=== PATIENT | female | born 1975 | race Caucasian/White ===

== ENCOUNTER 2020-01-21 06:42 | Outpatient (NON) | payer OTHER, SELFPAY ==
[2020-01-24 01:47] LABS: SARS-CoV-2 RNA PCR Negative
== END 2020-01-21 06:43 ==
PROVIDERS: PCP Family Medicine
DX: M51.16 Intervertebral disc disorders with radiculopathy, lumbar region (principal); R68.89 Other general symptoms and signs; Z20.828 Contact with and (suspected) exposure to other viral communicable diseases
CPT/HCPCS: 87635; C9803; U0003

== ENCOUNTER 2021-05-10 09:38 | Outpatient (CLI) | payer OTHER, SELFPAY ==
--- NOTE | ~2021-05-10 | CT_ITS ---
EXAMINATION: CT abdomen wo con DATE: 05/10/2021 09:59 INDICATION: Left flank mass. TECHNIQUE: Computed tomography (CT) of the abdomen was performed without intravenous contrast. Automa cristian exposure control and iterative reconstruction technique were employed. The dose-length product wa s 446.98 mGy-cm. COMPARISON: None. FINDINGS: The visualized portions of the lung bases demonstrate minimal atelectasis. No pleural effus ion. The heart size is normal. No pericardial effusion. The liver, gallbladder, spleen, pancreas, adr enal glands, and kidneys are normal. There are no dilated loops of bowel. There are no pathologically enlarged lymph nodes. There is no free intraperitoneal fluid. 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 There is mild thoracolumbar spondylosis. There is mild chronic anterior wedging of T10 and T11 vertebral bodies. IMPRESSION: 1. 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 Reviewed, dictated and finalized at location A.
== END 2021-05-10 09:39 ==
LOC: MICIMG 09:38
PROVIDERS: Visit Provider Surgery
DX: R22.2 Localized swelling, mass and lump, trunk (principal); M47.815 Spondylosis without myelopathy or radiculopathy, thoracolumbar region; M48.54XA Collapsed vertebra, not elsewhere classified, thoracic region, initial encounter for fracture
CPT/HCPCS: 74150

== ENCOUNTER → 2021-05-24 01:41 | Outpatient (CLI) | payer OTHER, SELFPAY ==
[2021-05-24 11:27] LABS: SARS-CoV-2 RNA PCR Negative
== END ==
PROVIDERS: Visit Provider Surgery
DX: Z01.812 Encounter for preprocedural laboratory examination (principal); Z20.822 Contact with and (suspected) exposure to COVID-19
CPT/HCPCS: C9803; U0003; U0005

== ENCOUNTER 2021-05-25 02:04 | Day surgery (SDC) | payer OTHER, SELFPAY ==
[2021-05-23 09:18] VITALS: BMI 31.8
--- NOTE | 2021-05-23 09:28 | PC.NURSE ---
Report to the Outpatient Waiting Room, entrance under the green pavilion located off [facility], at time 0800 on date 05/25/21. OR Time: 1000. - You and your visitor will be asked a series of questions to screen for COVID 19 for your protection. - A mask is required within the hospital. One visitor will be allowed to accompany the patient into the hospital. Patients visitor will be instructed to remain with patient at all times or leave the building. We will allow the visitor to come back to the postoperative area when patient is ready. Preoperative COVID Testing Requirements: COVDI TEST 05/24 AT 0945 No COVID Test needed if: (proof is required; if not received patient will have Rapid Test prior to entry) - Patient has received COVID Vaccine at least 14 days prior to procedure date or - Patient has positive COVID test result within last 90 days of surgery date. COVID Test needed if above criteria is not met If not COVID vaccinated a COVID test must be conducted within 72 hours of surgery and patient is asked to isolate self from time of testing until procedure. You will go to the [facility] for your COVID testing. The [facility] site is located at the corner of [address] [facility]. You will only be called if COVID results are positive and your surgeon may reschedule your elective surgery date. Patients may have clear liquids (water, carbonated beverages, clear teas, apple juice) until 3 hours prior to surgery with a maximum of 20 ounces. - No food from midnight until time of surgery Take the following medications with a SIP of water the morning of surgery: NONE Medications to discontinue per physician: N/A Date to take last dose: N/A Please no make-up, nail nepali, hairspray, perfume, deodorant, or body powder the day of surgery. No jewelry (including any body piercings) or valuables the day of surgery, leave them at home. Please take a shower or bath the night before, or the morning of, surgery with an antibacterial soap. Wear comfortable, loose fitting clothing. - Jewelry must be removed prior to entering the operating room. Rings and piercings that are not removed may be cut off. - The hospital will not accept responsibility for valuables. - Please leave all valuables, including medications, at home the day of surgery. If you are going home after surgery, a licensed garbage collector driver must drive you home. - NO public transportation without another adult. - We recommend that an adult stay with you for 24 hours following discharge. - We also recommend that you do not drive, make important decision, drink alcoholic beverages, or take any drugs that were not prescribed by your health care provider for at least 24 hours after your discharge time. Follow any additional instructions given to you from your surgeon. Telephone instructions given to DMITRI WARE and asked if any additional questions and then verbalized understanding. Patient advised to call surgeon office or pre surgery nurse liaison [phone] if any additional questions.
[2021-05-25] VITALS (8 sets, daily range): BP systolic 106–163; BP diastolic 48–73; PULSE 65–81; RESP 12–18; TEMP 36.2–36.7; O2SAT 96–100
[2021-05-25] MEDS: LACTATED RINGERS 1,000 ML 30 ML IV CONT (09:06)
--- NOTE | 2021-05-25 09:54 | WPDHPUPDATE1 ---
History and Physical Update Update Date/Time: 05/25/21 09:54 History and Physical has been reviewed, including an updated exam of the patient. There are NO changes in the patient's condition. Risks, benefits, and alternatives have been discussed and questions answered. Patient agrees to proceed with procedure.
--- NOTE | 2021-05-25 10:06 | P.PNAN_ITS ---
Anes - Initial Pre Proc Eval Procedure: Operation Date: 05/25/21 10:00 Proposed Procedures p Excision Subcutaneous Mass Left Flank - Brayden Soto MD Date/Time: 05/25/21 10:06 Surgeon: Brayden Soto MD Pre Op Diagnosis: left flank mass Patient Data Age: 46 Gender: F Height: 1.6 m Weight: 81.1 kg Last Vital Signs Temp 36.7 C 05/25/21 08:33 Pulse 81 05/25/21 08:33 Resp 16 05/25/21 08:33 BP 137/60 05/25/21 08:33 Pulse Ox 100 05/25/21 08:33 Allergies Allergy/AdvReac Type Severity Reaction Status Date / Time morphine Allergy Intermediate VOMITING, Verified 05/25/21 08:47 RASH divalproex sodium Allergy Mild PSYCH Verified 05/25/21 08:47 PROBLEMS Home Medications Medication Instructions Recorded Confirmed Type ibuprofen 800 mg PO BID PRN 05/23/21 05/25/21 History Patient hx anesthesia problems: none Family hx anesthesia problems: none Results Review: All pre-operative results and documents have been reviewed as part of the pre-operative evaluation. [facility] Past Medical History Medical History Anxiety Arthritis Irritable bowel syndrome Scleroderma Surgical History Surgical History H/O discectomy History of biopsy lymph node/neck 1983 History of tonsillectomy Family History Family History Father Heart disease Hypertension Mother Diabetes mellitus Hypertension Epilepsy Other Cancer Social History Social History Smoking packs per day: 0.5 Smoking cigarettes per day: 10.0 Years smoked: 22 Smoking pack-years: 11.00 Smoking status: Current every day smoker Tobacco type: cigarettes Alcohol intake: never Substance use: current Substance use type: marijuana Living arrangements: with family Additional occupation/education comments: homemaker Spiritual care concerns: No Agree to blood products: Yes Anes - Eval Final PreProcedure Day of Procedure 05/25/21 10:06 Patient weight: obese Heart: regular rate and rhythm Lungs: decreased breath sounds Airway: Mallampati scale class II Neurological: alert and oriented Last oral intake: >/= 8 hours ASA classification: III Emergent: no Anesthetic plan: proceed Anesthesia type and monitoring: general GIVS and standard monitoring Results Review: All pre-operative results and documents have been reviewed as part of the pre-operative evaluation. Informed Consent: The patient's anesthetic plan and its attendant risks and benefits were discussed with the patient/family/POA. Questions were solicited and answers provided to the satisfaction of the patient/family/POA.
[2021-05-25] MEDS: ceFAZolin 2 GM/D5W 50 ML 2 GM/50 ML BAG IVPB (10:10)
--- NOTE | 2021-05-25 11:13 | W.PM.PROC2 ---
Procedure Note - Detailed Date of Procedure 05/25/21 Pre-op Diagnosis Left flank intramuscular lipoma Post-op Diagnosis Same Procedure Performed Excision 6 cm intramuscular lipoma left flank Surgeon Brayden Soto MD [employer] [facility] Anesthesia General and Local (0.25% Marcaine with epinephrine) Indications Patient is a 46-year-old woman who was seen in the office with a left flank soft tissue mass. She underwent a CT scan which showed an intramuscular lipoma of the left flank.. She is taken to surgery now for excision. Findings 6 cm intramuscular lipoma as predicted by CT scan Description of Procedure The patient was checked in the preoperative holding area. She was taken to surgery and placed in right lateral decubitus position with the kidney rest in place. Initially we tried to anesthetize the patient with IV sedation but she was too restless and general per LMA was needed. She was prepped and draped. The area of the subcutaneous mass was marked on the skin. A transversely oriented incision was marked on the skin. Local was infiltrated in the area of the anticipated incision as well as the deeper tissues. Incision was then made and dissection carried through the subcutaneous. We continued through Gurinder's fascia and then encountered the most superficial aspect of this deeply seated lipoma. Lipoma was exposed the length of the wound. I then dissected under the muscle fibers both above and below the lipoma dissecting it free from these surrounding structures. The lipoma seemed to originate from fatty tissues associated with the spinal processes. I dissected down and exposed the deepest aspect of the lipoma. Eventually I was able to dissected free entirely. It was 6 cm x 5 cm. It was sent to pathology. The wound was made hemostatic with the cautery. The subcutaneous Gurinder's fascia was closed with interrupted 3-0 Vicryl suture. Subcuticular interrupted 4-0 Vicryl skin stitches were placed. The skin was finally closed with a running 4-0 Monocryl. The wound was dressed with Exofin surgical adhesive. The patient was awakened and taken to recovery in good condition. Sponge and needle counts were correct x2. Estimated Blood Loss -5 Drains No Packing No Pathology Yes (Lipoma) Complications No immediate complications Condition Stable Disposition PACU
== END 2021-05-25 12:31 | disposition home or self-care (01) ==
PROVIDERS: PCP Family Medicine; Visit Provider Surgery
PROC: (CPT 22901; principal; 2021-05-25 10:00)
DX: D17.1 Benign lipomatous neoplasm of skin and subcutaneous tissue of trunk (principal); F17.210 Nicotine dependence, cigarettes, uncomplicated; F12.90 Cannabis use, unspecified, uncomplicated; E66.9 Obesity, unspecified; Z68.31 Body mass index [BMI] 31.0-31.9, adult
CPT/HCPCS: 22901; 88304; C9803; J0690; J1100; J2250; J2405; J2704; J3010; J7120; U0003; U0005